=== PATIENT | male | born 1960 | race Caucasian/White ===

== ENCOUNTER → 2017-03-04 | Outpatient (CLI) | payer BC | LOC: GMAM 16:56 | PROVIDERS: ATTEND Family Medicine | DX: I48.0 Paroxysmal atrial fibrillation (principal) ==

== ENCOUNTER → 2017-08-19 | Outpatient (CLI) | payer BC ==
--- NOTE | 2017-08-19 16:40 | MRI ---
EXAM DESCRIPTION: Knee,Left: MRI. CLINICAL HISTORY: KNEE PAIN left. COMPARISON: None. TECHNIQUE: Multiplanar, high-field MRI, multiple sequences, without contrast: Left knee FINDINGS: Irregularity of the inferior margin of the posterior horn of the medial meniscus extending into the substance of the meniscus. Normal signal in the anterior horn and body. Medial compartment cartilage and subchondral bone is unremarkable. Minimal effusion in the medial compartment. Minimal effusion in the lateral compartment. Minimal thinning of the posterior lateral tibial cartilage, with normal signal in the subchondral bone Lateral femoral condyle cartilage and subchondral bone is unremarkable. Anterior cruciate and posterior cruciate ligaments are intact. Medial collateral ligament and elements of the lateral collateral ligament complex are unremarkable. Posterior medial soft tissue fluid collections. Minimal suprapatellar effusion with superior and medial patellar plica visible. Minimal edema in the infrapatellar fat pad. Minimal subcutaneous edema anterior to the patellar tendon. Normal signal in the quadriceps and patellar tendons. Minimal to moderate chondromalacia on the medial patellar facet. No subchondral edema on the patellar facets are trochlea. Medial and lateral patellar soft tissue restraints are intact. IMPRESSION: 1. Horizontal tear extending to the inferior articular surface of the posterior horn of the left medial meniscus. No significant cartilage or subchondral injury of the medial compartment. Minimal effusion. 2. Thinning of cartilage posterior lateral tibia. Normal signal in the subchondral bone. Lateral compartment effusion. 3. Mild to moderate chondromalacia medial left patellar facet. No subchondral edema. Suprapatellar effusion. Superior and medial plica are noted. Minimal edema in the infrapatellar fat pad. Also prepatellar subcutaneous edema. Patellar soft tissue restraints and tendons are unremarkable. Electronically signed by: Filemon Blum MD 08/19/2017 4:39 PM [employer]
== END | disposition home or self-care (01) ==
LOC: MRI 08:48
PROVIDERS: ATTEND Family Medicine
DX: S83.242A Other tear of medial meniscus, current injury, left knee, initial encounter (principal); M22.42 Chondromalacia patellae, left knee; E78.2 Mixed hyperlipidemia; R73.9 Hyperglycemia, unspecified; I48.0 Paroxysmal atrial fibrillation

== ENCOUNTER → 2018-07-19 | Outpatient (CLI) | payer BC | LOC: GMAM 11:22 | PROVIDERS: ATTEND Family Medicine | DX: Z12.5 Encounter for screening for malignant neoplasm of prostate (principal) ==

== ENCOUNTER 2018-09-20 05:00 | Day surgery (SDC) | payer BC ==
[2018-09-20] MEDS ORDERED: LACTATED RINGERS 1,000 ML ONE (06:42)
[2018-09-20] MEDS ORDERED: MIDAZOLAM INJ 2 MG/2 ML VIAL ONE (07:25)
[2018-09-20] MEDS ORDERED: fentaNYL CITRATE INJ 50 MCG/ML AMP ONE (07:25)
--- NOTE | 2018-09-20 09:00 | OP ---
DATE OF PROCEDURE: 09/20/18 PREOPERATIVE DIAGNOSIS: 1. History of colonic polyps. POSTOPERATIVE DIAGNOSIS: 1. Sigmoid colon polyp, 3 mm, removed with straight forceps biopsy. 2. Internal hemorrhoids. 3. Colonoscopy completed to the cecum. PROCEDURE: 1. Colonoscopy with polypectomy. SURGEON: Franki Whitman MD ESTIMATED BLOOD LOSS: Less than 10 mL. ANESTHESIA: Per [employer]IC[employer] ENGINEER. COMPLICATIONS: None apparent. TECHNIQUE: The patient was brought to the GI lab and laid in the left lateral decubitus position. Rectal exam was performed. Prostate was normal in size with no masses palpated. Normal anal tone. The scope was inserted into the rectum and gradually through to the cecum. The cecum was well visualized. The cecal valve was visualized, but not cannulated. The colonoscope was then gradually withdrawn back through the ascending colon into the transverse colon. The transverse colon was well visualized. No polyps were noted in the ascending or the transverse colon. The scope was withdrawn into the descending colon with good visualization and no polyps noted. The scope was withdrawn on into the sigmoid colon where a small, 3 to 4 mm sized hyperplastic appearing polyp was noted and removed with the straight forceps biopsy with good hemostasis noted. The scope was then withdrawn back into the rectum. The rectum was well- visualized and no polyps were noted. The scope was retroflexed with good visualization of the pectinate line. Some internal hemorrhoids were noted, but no other polyps or masses were noted. The scope was straightened and withdrawn. The patient tolerated the procedure well with no obvious complications. The patient will be discharged when cleared from Anesthesia standpoint. DISPOSITION: The patient will be discharged when cleared from Anesthesia standpoint. Anticipate repeat colonoscopy in 5 years due to history of previous colonic polyps and polyp found on this procedure as well. #[id number] [facility]
[2018-09-20 09:27] VITALS: BP 124/93; TEMP 96.7; O2SAT 98
[2018-09-20] MEDS ORDERED: PROPOFOL 200 MG/20 ML VIAL IV ONE (10:00)
[2018-09-20] MEDS ORDERED: LIDOCAINE 1% 10 ML VIAL INJ ONE (10:00)
[2018-09-20] MEDS ORDERED: KETOROLAC TROMETHAMINE INJ 30 MG/ML VIAL IV ONE (10:00)
== END 2018-09-20 09:15 | disposition home or self-care (01) ==
LOC: AMB 05:00
PROVIDERS: ATTEND Family Medicine
DX: Z12.11 Encounter for screening for malignant neoplasm of colon (principal); K63.5 Polyp of colon; K64.8 Other hemorrhoids; I48.91 Unspecified atrial fibrillation; E78.5 Hyperlipidemia, unspecified; I10 Essential (primary) hypertension; E11.9 Type 2 diabetes mellitus without complications; F17.220 Nicotine dependence, chewing tobacco, uncomplicated; Z86.010 Personal history of colon polyps; Z79.01 Long term (current) use of anticoagulants; Z79.899 Other long term (current) drug therapy
CPT/HCPCS: 00812; 36416; 45380; 82948; J1885; J2250; J3010; J3490; J7120